=== PATIENT | female | born 1975 | race Asian ===

== ENCOUNTER 2017-03-11 15:57 | Inpatient (IN) | payer MEDICAID ==
[~2017-03-11] VITALS: Ht 160 cm; Wt 67.1 kg
[2017-03-11] MEDS ORDERED: LACTATED RINGERS 1,000 ML IV SCH (23:40)
[2017-03-12] MEDS ORDERED: CITRIC ACID/SODIUM CITRATE 30 ML UDC PO SCH (00:15)
[2017-03-12 00:47] LABS: APPEARANCE,URINE CLEAR (CLEAR); BILIRUBIN,URINE NEGATIVE (NEGATIVE); BLOOD, URINE NEGATIVE (NEGATIVE); LEUKOCYTE ESTERASE ,URINE NEGATIVE (NEGATIVE); NITRITE, URINE NEGATIVE (NEGATIVE); UGLUCOSE NEGATIVE (NEGATIVE)
[2017-03-12 00:49] LABS: COLOR,URINE STRAW (YELLOW)
[2017-03-12 01:00] LABS: ALBUMIN 2.7 g/dL (3.4-5.0); ANION GAP 13.5 (8-16); CREATININE 0.4 mg/dL (0.6-1.3); POTASSIUM 3.5 mmol/L (3.5-5.1); TOTAL BILIRUBIN 0.5 mg/dL (0.0-1.0)
[2017-03-12 01:25] LABS: BASOPHILS # (AUTO) 0.1 K/uL (0.00-0.22); BASOPHILS % (AUTO) 0.8 % (0.0-2.0); EOSINOPHILS # (AUTO) 0.1 K/uL (0-0.4); EOSINOPHILS % (AUTO) 0.8 % (0.0-4.0); HEMATOCRIT 38.1 % (36-48); HEMOGLOBIN 12.7 g/dL (12.0-16.0); LYMPHOCYTES # (AUTO) 1.5 K/uL (2.5-16.5); LYMPHOCYTES % (AUTO) 19.2 % (20.5-51.1); MEAN CORPUSCULAR HEMOGLOBIN 29 pg (27-31); MEAN CORPUSCULAR HGB CONC 33 g/dL (33-37); MEAN CORPUSCULAR VOLUME 87 fL (80-94); MONOCYTES # (AUTO) 0.7 K/uL (0.8-1.0); MONOCYTES % (AUTO) 9.1 % (1.7-9.3); NEUTROPHILS # (AUTO) 5.6 K/uL (1.8-7.7); NEUTROPHILS % (AUTO) 70.1 % (42.2-75.2); PLATELET COUNT (AUTO) 186 K/uL (140-450); RED BLOOD CELL COUNT(AUTO) 4.39 MIL/uL (4.20-5.40); RED CELL DISTRIBUTION WIDTH 14.1 % (11.6-13.7)
[2017-03-12 01:30] LABS: RBC,URINE 0-5 (RARE) /HPF (0-5); WBC,URINE 0-5 (RARE) /HPF (0-5)
[2017-03-12] MEDS ORDERED: PREN-546 PO (03:02)
[2017-03-12] MEDS ORDERED: INFLUENZA VIRUS VACCINE QUAD 0.5 ML SYR IMVAC SCH (03:05)
[2017-03-12 03:06] VITALS: BP 120/63
--- NOTE | 2017-03-12 06:42 | NUR ---
PATIENT HAS BEEN SCREENED AND CATEGORIZED LOW NUTRITION RISK. PATIENT WILL BE SEEN WITHIN 7 DAYS OF ADMISSION. 03/18/17 ROSANNE MARCELO MS, RDN
[2017-03-12 06:56] LABS: RAPID PLASMA REAGIN NON-REACTIVE (Non Reactiv)
[2017-03-12] MEDS ORDERED: CITRIC ACID/SODIUM CITRATE 30 ML UDC ONE (07:57)
[2017-03-12] MEDS ORDERED: ONDANSETRON 4 MG/2 ML VIAL ONE (08:00)
[2017-03-12] MEDS ORDERED: ePHEDrine 50 MG/ML VIAL ONE (08:00)
[2017-03-12] MEDS ORDERED: BUPIVACAINE-MPF 0.75% 10 ML VIAL INJ ONE (08:00)
[2017-03-12] MEDS ORDERED: ceFAZolin 1,000 MG VIAL ONE (08:02)
[2017-03-12] MEDS ORDERED: TRIAMCINOLONE 40 MG/ML 5ML VIAL ONE (08:11)
[2017-03-12] MEDS ORDERED: OXYTOCIN 10 UNITS/ML VIAL ONE (08:11)
[2017-03-12] MEDS ORDERED: METHYLERGONOVINE 0.2 MG/ML AMP ONE ×2 (08:12→09:54)
[2017-03-12] MEDS ORDERED: OXYTOCIN 20 UNITS in LACTATED RINGERS 1,000 ML IV SCH ×2 (08:23→09:30)
[2017-03-12] MEDS ORDERED: HYDROcodone/APAP 5/325 MG 1 TAB TAB PO PRN (08:25)
[2017-03-12] MEDS ORDERED: TRIMETHOBENZAMIDE 200 MG/2 ML SYR IM PRN (08:25)
[2017-03-12] MEDS ORDERED: KETAMINE 500 MG/5 ML VIAL ONE (08:25)
[2017-03-12] MEDS ORDERED: METHYLERGONOVINE 0.2 MG/ML AMP IM PRN (08:25)
[2017-03-12] MEDS ORDERED: MEASLES, MUMPS, AND RUBELLA 1 VIAL SQVAC PRN (08:25)
[2017-03-12] MEDS ORDERED: fentaNYL 0.05 MG/ML VIAL ONE (08:25)
[2017-03-12] MEDS ORDERED: SIMETHICONE 80 MG TAB.CHEW PO PRN (08:25)
[2017-03-12] MEDS ORDERED: IBUPROFEN 800 MG TAB PO PRN (08:25)
[2017-03-12] MEDS ORDERED: oxyCODONE/APAP 5/325 MG 1 TAB TAB PO PRN (08:25)
[2017-03-12] MEDS ORDERED: MIDAZOLAM 2 MG/2 ML VIAL ONE (08:25)
[2017-03-12] MEDS ORDERED: MORPHINE PRES FREE 10 MG/10 ML AMP IV ONE (08:30)
[2017-03-12] MEDS ORDERED: ceFAZolin 1,000 MG VIAL IVP ONE (08:30)
[2017-03-12] MEDS ORDERED: diphenhydrAMINE 50 MG/ML VIAL ONE (08:31)
[2017-03-12] MEDS ORDERED: ONDANSETRON 4 MG/2 ML VIAL IVP PRN (09:00)
[2017-03-12] MEDS ORDERED: KETOROLAC 30 MG/ML VIAL IVP PRN (09:00)
[2017-03-12] MEDS: diphenhydrAMINE 50 MG/ML VIAL IVP PRN ×2 (09:25→12:54)
[2017-03-12] MEDS: OXYTOCIN 20 UNITS/LR PREMIX 1,000 ML IV ONE ×2 (09:36→10:05)
[2017-03-12] MEDS ORDERED: OXYTOCIN 20 UNITS/LR PREMIX 1,000 ML IV ONE (09:54)
[2017-03-12] MEDS: DOCUSATE SOD/SENNA 50/8.6 MG 1 TAB PO SCH (20:45)
[2017-03-12] MEDS ORDERED: TEMAZEPAM 15 MG CAP PO PRN (21:00)
[2017-03-13 07:08] LABS: HEMATOCRIT 32.6 % (36-48); MEAN CORPUSCULAR HEMOGLOBIN 29 pg (27-31); MEAN CORPUSCULAR HGB CONC 34 g/dL (33-37); MEAN CORPUSCULAR VOLUME 86 fL (80-94); PLATELET COUNT (AUTO) 193 K/uL (140-450); RED BLOOD CELL COUNT(AUTO) 3.78 MIL/uL (4.20-5.40); RED CELL DISTRIBUTION WIDTH 14.1 % (11.6-13.7); WHITE BLOOD COUNT (AUTO) 12.4 K/uL (4.8-10.8)
[2017-03-13 08:48] LABS: BASOPHILS % (MANUAL) 0 % (0-2); EOSINOPHILS % (MANUAL) 0 % (0-4); LYMPHOCYTES % (MANUAL) 12 % (20-46); MONOCYTES % (MANUAL) 5 % (5-12)
[2017-03-13] MEDS: DOCUSATE SOD/SENNA 50/8.6 MG 1 TAB PO SCH (21:29)
[2017-03-14] MEDS: DOCUSATE SOD/SENNA 50/8.6 MG 1 TAB PO SCH (21:32)
--- NOTE | 2017-03-17 14:58 | NUR ---
CM NOTE H&P AND OPERATIVE REPORT FAXED TO [facility] / FAX# [phone], ATTN: GAYE #[phone]
== END 2017-03-15 14:10 | disposition home or self-care (01) | DRG 540 ==
LOC: MLD 23:10 → MFCC 03-12 09:20
PROVIDERS: ADMIT Obstetrics & Gynecology; ATTEND Obstetrics & Gynecology
PROC: 10D00Z1 Extraction of Products of Conception, Low, Open Approach (ICD-10-PCS; principal; 2017-03-12 08:00)
DX: O34.211 Maternal care for low transverse scar from previous cesarean delivery (principal); Z37.0 Single live birth; Z3A.39 39 weeks gestation of pregnancy
CPT/HCPCS: 36415; 80053; 81001; 85025; 86592; 86762; 86886; 86900; 86901; 87340; 87653-90; J0690; J1200; J2210; J2250; J2270; J2405; J2590; J3010; J3301; J3490; J7120

== ENCOUNTER 2017-06-03 12:01 | Emergency (ER) | payer MEDICAID ==
[~2017-06-03] VITALS: Ht 152.4 cm; Wt 62.1 kg
[~2017-06-03 12:01] MED LIST: PREN-546 PO
[2017-06-03 12:09] VITALS: BP 126/92
--- NOTE | 2017-06-03 12:26 | NUR ---
PATIENT PRESENTS TO ED WITH SMALL Dehiscence AREA TO A HEALED SITE WITH SEROSANGUINEOUS DRAINAGE . PT STATES . DENIES N/V/D; SKIN IS PINK/WARM/DRY; AAOX4 WITH EVEN AND STEADY GAIT; LUNGS CLEAR BL; HR EVEN AND REGULAR; PT DENIES ANY FEVER, CP, SOB, OR COUGH AT THIS TIME; PATIENT STATES PAIN OF 5/10 AT THIS TIME; VSS; PATIENT POSITIONED FOR COMFORT; HOB ELEVATED; BEDRAILS UP X2; BED DOWN. ER MD MADE AWARE OF PT STATUS.
[2017-06-03 14:03] VITALS: BP 121/78
--- NOTE | 2017-06-03 14:03 | NUR ---
dressing applied to wound---
--- NOTE | 2017-06-03 14:03 | NUR ---
Patient discharged with v/s stable. Written and verbal after care instructions given and explained. Patient alert, oriented and verbalized understanding of instructions. Ambulatory with steady gait. All questions addressed prior to discharge. ID band removed. Patient advised to follow up with PMD. Rx of keflex/benadryl given. Patient educated on indication of medication including possible reaction and side effects. Opportunity to ask questions provided and answered.
== END 2017-06-03 14:03 | disposition home or self-care (01) ==
LOC: MED 12:01
DX: T81.4XXA Infection following a procedure, initial encounter (principal)
CPT/HCPCS: 99283